=== PATIENT | male | born 1945 | race Caucasian/White ===

== ENCOUNTER 2017-01-24 23:14 | Emergency (ER) | payer OTHER, BC ==
[2017-01-24 23:33] VITALS: BP 138/70; PULSE 70; TEMP 97.8; BMI 21.9
[2017-01-25] MEDS ORDERED: DIPHTH,PERTUSS(ACELL),TET VAC 0.5 ML VIAL IM ONE (01:04)
[2017-01-25] MEDS ORDERED: AMOX TR/POT CLAV 875MG/125MG TABLETS (FP) PO ONE (01:05)
[2017-01-25] MEDS ORDERED: AMOX TR/POT CLAV 875MG/125MG TABLETS (FP) ONE (01:14)
--- NOTE | 2017-01-25 01:53 | PDOC ---
[id number] is a hypertension, high cholesterol, cardiac stent who presents to the ED with a left fourth finger laceration. Patient states that he cut his hand on the lid of a can while washing dishes. He reports his tetanus is not UTD. He has no other complaints. <Ashley Malcolm - Last Filed: 01/25/17 02:49> <Ilene Cano - Last Filed: 01/25/17 22:22> - General Chief Complaint: Laceration Stated Complaint: LACERATION Time Seen by Provider: 01/25/17 01:01 Past History <Lexie Malcolmobalem Mendoza - Last Filed: 01/25/17 02:49> - Past Medical History HTN: Yes Hypercholesterolemia: Yes - Surgical History Cardiac Surgery: Yes (stent) - Psycho/Social/Smoking Cessation Hx Anxiety: No Suicidal Ideation: No Smoking Status: No Smoking History: Never smoked Have you smoked in the past 12 months: No Number of Cigarettes Smoked Daily: 0 Information on smoking cessation initiated: No Hx Alcohol Use: No Drug/Substance Use Hx: No Substance Use Type: None <Ilene Cano - Last Filed: 01/25/17 22:22> - Past Medical History Allergies/Adverse Reactions: Allergies Allergy/AdvReac Type Severity Reaction Status Date / Time No Known Allergies Allergy Verified 01/24/17 23:33 Home Medications: Ambulatory Orders Aspirin [ASA] 81 mg PO DAILY 05/30/13 Atenolol [Tenormin] 12.5 mg PO DAILY 05/30/13 Clopidogrel Bisulfate [Plavix] 75 mg PO DAILY 05/30/13 Rosuvastatin Calcium [Crestor] 20 mg PO DAILY 05/30/13 Amoxicillin/Potassium Clav [Augmentin 875-125 Tablet] 1 each PO BID #14 tablet 01/25/17 Review of Systems - Review of Systems Comments:: 01/25/17 02:49 GENERAL/CONSTITUTIONAL: No fever or chills. No weakness. HEAD, EYES, EARS, NOSE AND THROAT: No change in vision. No ear pain or discharge. No sore throat. CARDIOVASCULAR: No chest pain or shortness of breath. RESPIRATORY: No cough, wheezing, or hemoptysis. GASTROINTESTINAL: No nausea, vomiting, diarrhea or constipation. GENITOURINARY: No dysuria, frequency, or change in urination. MUSCULOSKELETAL: No joint or muscle swelling or pain. No neck or back pain. SKIN: + left fourth finger laceration. No rash NEUROLOGIC: No headache, vertigo, loss of consciousness, or change in strength/ sensation. ENDOCRINE: No increased thirst. No abnormal weight change. HEMATOLOGIC/LYMPHATIC: No anemia, easy bleeding, or history of blood clots. ALLERGIC/IMMUNOLOGIC: No hives or skin allergy. <Lexie Malcolmobalem Mendoza - Last Filed: 01/25/17 02:49> *Physical Exam - Vital Signs Last Vital Signs Temp Pulse Resp BP Pulse Ox 97.8 F 70 18 138/70 97 01/24/17 23:30 01/24/17 23:30 01/24/17 23:30 01/24/17 23:30 01/24/17 23:30 - Physical Exam Comments: 01/25/17 02:50 GENERAL: Awake, alert, and fully oriented, in no acute distress HEAD: No signs of trauma EYES: PERRLA, EOMI, sclera anicteric, conjunctiva clear ENT: Auricles normal inspection, hearing grossly normal, nares patent, oropharynx clear without exudates. Moist mucosa NECK: Normal ROM, supple, no lymphadenopathy, JVD, or masses LUNGS: Breath sounds equal, clear to auscultation bilaterally. No wheezes, and no crackles HEART: Regular rate and rhythm, normal S1 and S2, no murmurs, rubs or gallops ABDOMEN: Soft, nontender, normoactive bowel sounds. No guarding, no rebound. No masses EXTREMITIES: Normal range of motion, no edema. No clubbing or cyanosis. No cords, erythema, or tenderness NEUROLOGICAL: Cranial nerves II through XII grossly intact. Normal speech, normal gait SKIN: 1.5 cm laceration on left fourth finger on lateral aspect of proximal phalanx. No tendon involvement. Warm, Dry, normal turgor, no rashes or lesions noted. <Lexie Malcolmobalem Mendoza - Last Filed: 01/25/17 02:49> - Vital Signs Last Vital Signs Temp Pulse Resp BP Pulse Ox 97.8 F 70 18 138/70 97 01/24/17 23:30 01/24/17 23:30 01/24/17 23:30 01/24/17 23:30 01/24/17 23:30 <Ilene Cano - Last Filed: 01/25/17 22:22> Procedures - Laceration/Wound Repair Left 4th digit Wound Length: to 2.5 cm Wound Explored: clean Wound's Depth, Shape: into muscle Irrigated w/ Saline: Yes Betadine Prep: Yes Anesthesia: 2% Lidocaine Wound Repaired With: Sutures Suture Size/Type: 4:0, other Number of Sutures: 6 Layer Closure: No Sterile Dressing Applied: Yes Splint Applied: Yes <Ilene Cano - Last Filed: 01/25/17 22:22> ED Treatment Course - Medications Given in the ED: ED Medications Discontinued Medications Generic Name Dose Route Start Last Admin Trade Name Freq PRN Reason Stop Dose Admin Amoxicillin/Clavulanate Potassium 1 tab 01/25/17 01:05 01/25/17 01:18 Augmentin - 875mg Tablet PO 01/25/17 01:06 1 tab ONCE ONE Administration Diphtheria/Tetanus/Acell Pertussis 0.5 ml 01/25/17 01:04 01/25/17 01:17 Adacel Adolescent/Adult - IM 01/25/17 01:05 0.5 ml .ONCE ONE Administration <Ashley Malcolm - Last Filed: 01/25/17 02:49> - RADIOLOGY Radiology Studies Ordered: Category Date Time Status FINGER(S) LEFT [RAD] Stat Radiology 01/25/17 01:04 Taken - Medications Given in the ED: ED Medications Discontinued Medications Generic Name Dose Route Start Last Admin Trade Name Freq PRN Reason Stop Dose Admin Amoxicillin/Clavulanate Potassium 1 tab 01/25/17 01:05 01/25/17 01:18 Augmentin - 875mg Tablet PO 01/25/17 01:06 1 tab ONCE ONE Administration Diphtheria/Tetanus/Acell Pertussis 0.5 ml 01/25/17 01:04 01/25/17 01:17 Adacel Adolescent/Adult - IM 01/25/17 01:05 0.5 ml .ONCE ONE Administration <Ilene Cnao - Last Filed: 01/25/17 22:22> Medical Decision Making - Medical Decision Making 01/25/17 22:18 Pt cut his left 4th finger and 5th finger on a can lid while he was washing dishes. Clean wound. Xray done Sutures placed. Abx in ER and for home. Tdap given Follow for wound check <Ilene Cano - Last Filed: 01/25/17 22:22> *DC/Admit/Observation/Transfer - Attestations Scribe Attestion: 01/25/17 02:51 Documentation prepared by Ashley Malcolm, acting as medical registrar for Ilene Cano MD. <Ashley Malcolm - Last Filed: 01/25/17 02:49> - Discharge Dispostion Admit: No <Ilene Cano - Last Filed: 01/25/17 22:22> Diagnosis at time of Disposition: Finger laceration - Discharge Dispostion Disposition: HOME Condition at time of disposition: Stable - Prescriptions Prescriptions: Amoxicillin/Potassium Clav [Augmentin 875-125 Tablet] 1 each PO BID #14 tablet - Referrals Referrals: Jenny Chapin MD [Primary Care Provider] - - Patient Instructions Printed Discharge Instructions: DI for Laceration Repair, DI for Hand Injury, Tetanus, Diphtheria, Pertussis (Tdap) Vaccine
== END 2017-01-25 03:17 | disposition home or self-care (01) ==
LOC: SUPCPDRO 23:14 → JER 23:14
PROC: 0JQK0ZZ Repair Left Hand Subcutaneous Tissue and Fascia, Open Approach (ICD-10-PCS; principal; 2017-01-24)
DX: S61.215A Laceration without foreign body of left ring finger without damage to nail, initial encounter (principal); S61.217A Laceration without foreign body of left little finger without damage to nail, initial encounter; W26.8XXA Contact with other sharp object(s), not elsewhere classified, initial encounter; Y93.G1 Activity, food preparation and clean up; Y92.030 Kitchen in apartment as the place of occurrence of the external cause
CPT/HCPCS: 12001-25; 73140-TC-LT; 99283-25

== ENCOUNTER 2019-02-03 06:26 | Day surgery (SDC) | payer OTHER, BC ==
[2019-01-29 12:26] VITALS: BMI 21.6
[2019-02-03] MEDS: CIPROFLOXACIN 0.3% EYE DROPS 5 ML BOTTLE ONE ×3 (06:55→07:05)
[2019-02-03] MEDS: CYCLOPENTOLATE 2% OPHTH SOLN 2 ML BOTTLE ONE ×3 (06:55→07:05)
[2019-02-03] MEDS: TROPICAMIDE 1% OPHTH SOLN 15 ML BOTTLE ONE ×3 (06:55→07:05)
[2019-02-03] MEDS: PHENYLEPHRINE 2.5% OPHTH SOLN 15 ML BOTTLE ONE ×3 (06:55→07:05)
[2019-02-03] MEDS ORDERED: BSS (NA/CA/MG/K) BALANCED SALT SOLUTION OPHTH SOLN 15 ML BOTTLE ONE (07:10)
[2019-02-03] MEDS ORDERED: TETRACAINE 0.5% OPHTH SOLN 2 ML BOTTLE ONE (07:10)
[2019-02-03] MEDS ORDERED: LIDOCAINE 1% P/F 10 MG/ML VIAL ONE (07:10)
[2019-02-03] MEDS ORDERED: NEO/POLYMYX B SULF/DEXAMETH OPHTHALMIC 5ML BOTTLE ONE (07:11)
[2019-02-03] MEDS ORDERED: CARBACHOL 0.01% INTRA-OCULAR 1.5 ML VIAL ONE (07:11)
[2019-02-03] MEDS ORDERED: SUCCINYLCHOLINE CHLORIDE 200 MG/10 ML VIAL ONE (08:14)
[2019-02-03] MEDS ORDERED: MIDAZOLAM HCL 2 MG/2 ML SINGLE DOSE VIAL ONE (08:14)
--- NOTE | 2019-02-03 08:48 | OP ---
DATE OF OPERATION: 02/03/2019 OPERATIVE PROCEDURE: Lens phacoemulsification with posterior chamber intraocular lens placement, right eye. PREOPERATIVE DIAGNOSIS: Visually significant cataract of right eye. POSTOPERATIVE DIAGNOSIS: Visually significant cataract of right eye. SURGEON: Armando Kong MD ANESTHESIA: MAC. PROCEDURE: The patient was brought to the operating room and placed under monitored anesthesia care by Anesthesia. A drop of tetracaine was then placed over the right eye. The patient was then prepped and draped in the usual sterile manner. A speculum was then placed over the right eye. The eye was then well irrigated with copious amounts of BSS (balanced salt solution). The operating microscope was then moved into position. A paracentesis was performed using a 15-degree blade. At this point 0.5 mL of 1% preservative-free lidocaine was injected into the anterior chamber. Amvisc Plus was then injected into the anterior chamber. A clear corneal incision was then formed using a 2.2-mm keratome. A capsulorrhexis was then performed in a continuous circular fashion beginning with a cystotome completed with an Utratas forceps. Hydrodissection was then performed using BSS on a cannula. The phaco probe was then introduced through the corneal wound and the cataract was removed using the phaco chop technique. Approximately 3 seconds of absolute phaco time was used. The remaining cortex was then removed using irrigation and aspiration with an I/A probe. The capsule was then filled with regular Amvisc and the capsule was noted to be intact. A previously selected foldable posterior chamber intraocular lens was then injected into the capsule through the corneal wound using a lens injector. It was then dialed into position using a Sinskey hook. The Amvisc was then removed using irrigation and aspiration. Miostat was then injected through the paracentesis to constrict the pupil. The paracentesis and corneal wound were then hydrated and noted to be watertight. A drop of Maxitrol was then placed over the eye. The speculum was removed and clear shield was taped over the eye. The patient tolerated the procedure well and there were no surgical complications. The patient was asked to follow up in my office the next day. ARMANDO KONG M.D. NASIR/[id number]
[2019-02-03 08:53] VITALS: TEMP 98.2
[2019-02-03 09:05] VITALS: BP 114/73; PULSE 65
== END 2019-02-03 09:15 | disposition home or self-care (01) ==
LOC: FASU 06:26
PROVIDERS: ATTEND Ophthalmology
PROC: 08RJ3JZ Replacement of Right Lens with Synthetic Substitute, Percutaneous Approach (ICD-10-PCS; principal; 2019-02-03 08:00)
DX: H26.8 Other specified cataract (principal)

== ENCOUNTER 2023-06-12 18:14 | Inpatient (IN) | payer OTHER, BC ==
[2023-06-12 18:20] VITALS: BMI 21.2
[2023-06-12] MEDS ORDERED: CLINDAMYCIN 600MG PREMIX IVPB 600 MG/50 ML BAG IVPB ONE ×2 (19:23→20:02)
[2023-06-12] MEDS ORDERED: CIPROFLOXACIN 400 MG/D5W 400 MG/200 ML IVPB IVPB ONE (19:25)
[2023-06-12] MEDS ORDERED: ACETAMINOPHEN 1000 MG/100 ML BAG IVPB ONE (19:40)
[2023-06-12] MEDS ORDERED: ACETAMINOPHEN INJECTION 100 ML IVPB ONE (20:01)
[2023-06-12 20:27] LABS: BASO % 0.5 % (0-2.0); EOS % 1.1 % (0-4.5); HEMATOCRIT 41.9 % (35.4-49); HEMOGLOBIN 13.5 GM/dL (11.7-16.9); LYMPH % 12.2 % (8-40); MCH 29.8 pg (25.7-33.7); MCHC 32.3 g/dl (32.0-35.9); MEAN CELL VOLUME 92.4 fl (80-96); MONO % 13.7 % (3.8-10.2); NEUT % 72.5 % (42.8-82.8); PLATELET COUNT 193 10^3/uL (134-434); RBC 4.53 M/mm3 (4.00-5.60); RDW 14.7 % (11.9-15.9); WHITE BLOOD COUNT 7.6 K/mm3 (4.0-10.0)
[2023-06-12 20:39] LABS: INR 1.05 (0.83-1.09); PROTHROMBIN TIME (PATIENT) 12.2 SEC (9.7-13.0)
[2023-06-12 20:53] LABS: POTASSIUM 4.9 mmol/L (3.5-5.1)
[2023-06-12 20:58] LABS: ALBUMIN 3.2 g/dl (3.4-5.0)
[2023-06-12 21:02] LABS: CREATININE 0.9 mg/dL (0.55-1.3)
[2023-06-12 21:03] LABS: BILIRUBIN,TOTAL 0.5 mg/dL (0.2-1); TOT PROT 6.6 g/dl (6.4-8.2)
[2023-06-12 21:38] LABS: ERYTHROCYTE SEDIMENTATION RATE 38 mm/hr (0-20)
[2023-06-13] MEDS ORDERED: ACETAMINOPHEN 1000 MG/100 ML BAG IVPB PRN (02:39)
[2023-06-13 03:04] VITALS: RESP 18
[2023-06-13] MEDS: CLINDAMYCIN 600MG PREMIX IVPB 600 MG/50 ML BAG IVPB SCH ×3 (06:48→17:20)
[2023-06-13] MEDS: ENOXAPARIN NA (PORCINE) 40 MG/0.4 ML DISP.SYRIN SQ SCH (12:23)
[2023-06-13] MEDS: LACTOBACILLUS ACIDOPHILUS 1 TABLET PO SCH (12:25)
[2023-06-14] MEDS: CLINDAMYCIN 600MG PREMIX IVPB 600 MG/50 ML BAG IVPB SCH ×3 (01:31→18:15)
[2023-06-14] MEDS ORDERED: ACETAMINOPHEN 325 MG TABLET (FP) PO PRN (02:29)
[2023-06-14 09:17] LABS: BASO % 0.8 % (0-2.0); EOS % 2.2 % (0-4.5); HEMATOCRIT 42.9 % (35.4-49); HEMOGLOBIN 14.2 GM/dL (11.7-16.9); MCH 30.3 pg (25.7-33.7); MCHC 33.1 g/dl (32.0-35.9); MEAN CELL VOLUME 91.5 fl (80-96); MEAN PLT VOLUME 8.3 fl (7.5-11.1); MONO % 11.8 % (3.8-10.2); NEUT % 66.2 % (42.8-82.8); PLATELET COUNT 215 10^3/uL (134-434); RBC 4.69 M/mm3 (4.00-5.60); RDW 14.7 % (11.9-15.9); WHITE BLOOD COUNT 5.6 K/mm3 (4.0-10.0)
[2023-06-14 09:30] LABS: POTASSIUM 4.5 mmol/L (3.5-5.1)
[2023-06-14 09:33] LABS: BLOOD UREA NITROGEN 15.8 mg/dL (7-18)
[2023-06-14] MEDS: LACTOBACILLUS ACIDOPHILUS 1 TABLET PO SCH (10:37)
[2023-06-14] MEDS: ENOXAPARIN NA (PORCINE) 40 MG/0.4 ML DISP.SYRIN SQ SCH (10:38)
[2023-06-15] MEDS: CLINDAMYCIN 600MG PREMIX IVPB 600 MG/50 ML BAG IVPB SCH ×3 (02:05→17:09)
[2023-06-15] MEDS: LACTOBACILLUS ACIDOPHILUS 1 TABLET PO SCH (10:18)
[2023-06-15] MEDS: ENOXAPARIN NA (PORCINE) 40 MG/0.4 ML DISP.SYRIN SQ SCH (10:18)
[2023-06-16] MEDS: CLINDAMYCIN 600MG PREMIX IVPB 600 MG/50 ML BAG IVPB SCH ×2 (01:59→09:49)
[2023-06-16 07:52] VITALS: TEMP 97.9
[2023-06-16] MEDS: LACTOBACILLUS ACIDOPHILUS 1 TABLET PO SCH (09:49)
[2023-06-16] MEDS: ENOXAPARIN NA (PORCINE) 40 MG/0.4 ML DISP.SYRIN SQ SCH (09:49)
[2023-06-16 11:07] VITALS: BP 139/67; PULSE 71
== END 2023-06-16 11:05 | disposition home or self-care (01) | DRG 605 ==
LOC: JER 18:14 → JERBED 20:59 → J8W 06-13 01:51
PROVIDERS: ADMIT Internal Medicine; ATTEND Family Medicine
DX: S61.452A Open bite of left hand, initial encounter (principal); L03.114 Cellulitis of left upper limb; W55.01XA Bitten by cat, initial encounter; I25.10 Atherosclerotic heart disease of native coronary artery without angina pectoris; N40.0 Benign prostatic hyperplasia without lower urinary tract symptoms; E78.5 Hyperlipidemia, unspecified; Y92.098 Other place in other non-institutional residence as the place of occurrence of the external cause
CPT/HCPCS: 36415; 73090-TC-LT-FY; 73130-TC-LT-FY; 80048; 80053; 85025; 85610; 85651; 85730; 86140; 87040; 93005; 93010; 99285-25

== ENCOUNTER 2023-08-03 16:33 | Emergency (ER) | payer OTHER, BC ==
[2023-08-03 16:53] VITALS: BP 118/60; PULSE 85; RESP 18; TEMP 99; BMI 20.5
[2023-08-03 18:14] LABS: BASO % 0.1 % (0-2.0); MCHC 33.9 g/dl (32.0-35.9); MEAN PLT VOLUME 7.5 fl (7.5-11.1)
[2023-08-03 18:16] LABS: EOS % 0.4 % (0-4.5); HEMATOCRIT 39.1 % (35.4-49); HEMOGLOBIN 13.3 GM/dL (11.7-16.9); LYMPH % 6.3 % (8-40); MCH 30.1 pg (25.7-33.7); MEAN CELL VOLUME 88.7 fl (80-96); NEUT % 83.2 % (42.8-82.8); PLATELET COUNT 193 10^3/uL (134-434); RBC 4.41 M/mm3 (4.00-5.60); RDW 14.1 % (11.9-15.9); WHITE BLOOD COUNT 8.8 K/mm3 (4.0-10.0)
[2023-08-03 18:53] LABS: ALBUMIN 3.1 g/dl (3.4-5.0); BILIRUBIN,TOTAL 0.5 mg/dL (0.2-1); BLOOD UREA NITROGEN 14.2 mg/dL (7-18); CALCIUM 8.1 mg/dL (8.5-10.1); TOT PROT 6.1 g/dl (6.4-8.2)
== END 2023-08-03 21:48 | disposition home or self-care (01) ==
LOC: JER 16:33
DX: R10.11 Right upper quadrant pain (principal); R53.1 Weakness; M79.10 Myalgia, unspecified site; R63.0 Anorexia; R50.9 Fever, unspecified; U07.1 COVID-19
CPT/HCPCS: 0241U-QW; 36415; 71046-TC-FY; 76705-TC; 80053; 82550; 83690; 84484; 85025; 93005; 93010; 99285-25

== ENCOUNTER 2024-08-16 04:16 | Day surgery (SDC) | payer OTHER, BC ==
[2024-08-11 10:49] VITALS: BMI 20.5
[2024-08-16 06:24] VITALS: RESP 16
[2024-08-16] MEDS ORDERED: SUCCINYLCHOLINE CHLORIDE 200 MG/10 ML SYRINGE ONE (07:22)
[2024-08-16] MEDS ORDERED: MIDAZOLAM HCL 2 MG/2 ML SINGLE DOSE VIAL ONE (08:29)
[2024-08-16] MEDS ORDERED: ONDANSETRON 4 MG/2 ML VIAL ONE (08:33)
[2024-08-16 10:45] VITALS: BP 143/74; PULSE 57; TEMP 97.4
== END 2024-08-16 10:52 | disposition home or self-care (01) ==
LOC: JASU-SURG 04:16
PROVIDERS: ATTEND Urology
PROC: 0TF4XZZ Fragmentation in Left Kidney Pelvis, External Approach (ICD-10-PCS; principal; 2024-08-16 08:37)
DX: N20.0 Calculus of kidney (principal)